=== PATIENT | male | born 1945 | race Caucasian/White ===

== ENCOUNTER 2016-11-17 09:04 | Outpatient (CLI) | payer MEDICARE, OTHER ==
[2016-11-17 09:40] LABS: Bilirubin Negative (Negative); Blood, Urine Negative (Negative); Clarity Clear (Clear); Glucose, Urine (Dipstick) Negative (Negative); Leukocyte Negative (Negative); Nitrite Negative (Negative); Protein, Urine (Dipstick) Negative (Neg-Trace); Urobilinogen 0.2 mg/dL (0.2-1.0)
[2016-11-17 09:48] LABS: #Basophils 0.1 thou/uL (0.0-0.2); #Eosinphils 0.2 thou/uL (0.0-0.7); #Lymphocytes 2.2 thou/uL (1.20-3.40); #Monocytes 0.5 thou/uL (0.11-0.59); #Neutrophils 3.3 thou/uL (1.40-6.50); %Basophils 0.8 % (0.0-1.0); %Eosinophils 3.5 % (0.0-10.0); %Lymphocytes 34.6 % (21.0-51.0); %Monocytes 8.2 % (0.0-10.0); %Neutrophils 52.9 % (42.0-75.0); Hemoglobin 16.6 g/dL (14.0-18.0); Mean Corpuscular HGB CONC 33.7 g/dL (32.0-36.0); Mean Corpuscular Hemoglobin 31.3 pg (27.0-31.0); Mean Corpuscular Volume 92.7 fl (80.0-94.0); Mean Platelet Volume 9.6 fL (7.4-10.4); Platelet Count 191 thou/uL (130-400); RBC Distribution Width 11.6 % (11.5-14.5); White Blood Cell (WBC) Count 6.2 thou/uL (4.8-10.8)
[2016-11-17 10:12] LABS: ALT (SGPT) 19 U/L (0-55); AST (SGOT) 21 U/L (5-34); Albumin 3.9 g/dL (3.4-4.8); Alkaline Phosphatase 53 U/L (40-150); Anion Gap 10 mmol/L (10-20); BUN (Urea Nitrogen) 21 mg/dL (8.4-25.7); Bilirubin, Total 1.1 mg/dL (0.2-1.2); Calc. Creatinine Clearance 0 mL/min (70-130); Calcium 9.3 mg/dL (7.8-10.44); Carbon Dioxide 28 mmol/L (23-31); Cardiac Risk 4.5 (Less than 4.5); Chloride 107 mmol/L (98-107); Cholesterol 211 mg/dL (< 200 Desired); Estimated GFR-MDRD 76; Globulin 2.6 g/dL (2.4-3.5); Glucose 110 mg/dL (83-110); HDL Cholesterol 47 mg/dL (>60 Neg Risk); LDL Cholesterol, Calculated 138 mg/dL; Potassium 5.1 mmol/L (3.5-5.1); Protein, Total 6.5 g/dL (5.8-8.1); Sodium 140 mmol/L (136-145); Triglycerides 128 mg/dL (Less than 150)
== END 2016-11-17 09:05 ==
LOC: MADLABBHPM 09:04
PROVIDERS: ATTEND Family Medicine
DX: E78.5 Hyperlipidemia, unspecified (principal)
CPT/HCPCS: 36415; 80053; 80061; 81001; 84443; 85025

== ENCOUNTER 2017-01-30 10:59 | Outpatient (CLI) | payer MEDICARE, OTHER | END 2017-01-30 11:00 | disposition home or self-care (01) | LOC: MADLABBHPM 10:59 | PROVIDERS: ATTEND Family Medicine | DX: N52.9 Male erectile dysfunction, unspecified (principal) | CPT/HCPCS: 36415; 84153; 84154 ==

== ENCOUNTER 2018-04-10 09:14 | Outpatient (CLI) | payer OTHER | END 2018-04-10 09:15 | disposition home or self-care (01) | LOC: MADLAB 09:14 | DX: Z00.00 Encounter for general adult medical examination without abnormal findings (principal) | CPT/HCPCS: G0103 ==

== ENCOUNTER 2018-11-08 14:08 | Outpatient (CLI) | payer MEDICARE ==
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
== END 2018-11-08 14:09 | disposition home or self-care (01) ==
LOC: MADRAD 14:08
PROVIDERS: ATTEND Family Medicine
DX: M54.5 Low back pain (principal); V89.2XXA Person injured in unspecified motor-vehicle accident, traffic, initial encounter
CPT/HCPCS: 72100

== ENCOUNTER 2022-02-15 17:05 | Emergency (ER) | payer MEDICARE ==
[~2022-02-15 17:05] MED LIST: Sodium Chloride 0.9% 100 ML BAG ONE
[2022-02-15 17:21] LABS: #Basophils 0.1 thou/uL (0.0-0.2); #Eosinphils 0.2 thou/uL (0.0-0.7); #Lymphocytes 2.5 thou/uL (1.20-3.40); #Monocytes 0.6 thou/uL (0.11-0.59); #Neutrophils 4.8 thou/uL (1.40-6.50); %Basophils 0.7 % (0.0-1.0); %Eosinophils 2.6 % (0.0-10.0); %Lymphocytes 30.7 % (21.0-51.0); %Monocytes 6.9 % (0.0-10.0); %Neutrophils 59.1 % (42.0-75.0); Hemoglobin 16.9 g/dL (14.0-18.0); Mean Corpuscular HGB CONC 32.5 g/dL (32.0-36.0); Mean Corpuscular Volume 92.2 fL (78.0-98.0); Mean Platelet Volume 9.7 fL (7.4-10.4); Platelet Count 213 thou/uL (130-400); RBC Distribution Width 12.2 % (11.5-14.5); Red Blood Cell (RBC) Count 5.64 mill/uL (4.70-6.10); White Blood Cell (WBC) Count 8.2 thou/uL (4.8-10.8)
[2022-02-15 17:27] LABS: INR-International Normal Ratio 0.9
[2022-02-15 17:28] LABS: PTT 35.9 sec (22.9-36.1)
[2022-02-15 17:36] LABS: ALT (SGPT) 18 U/L (8-55); AST (SGOT) 25 U/L (5-34); Albumin 4.1 g/dL (3.4-4.8); Alkaline Phosphatase 62 U/L (40-110); Anion Gap 16 mmol/L (10-20); BUN (Urea Nitrogen) 16 mg/dL (8.4-25.7); Bilirubin, Total 0.9 mg/dL (0.2-1.2); Calc. Creatinine Clearance 0 mL/min (70-130); Calcium 9.6 mg/dL (7.8-10.44); Carbon Dioxide 24 mmol/L (23-31); Chloride 108 mmol/L (98-107); Globulin 3.1 g/dL (2.4-3.5); Glucose 98 mg/dL (83-110); Potassium 4.9 mmol/L (3.5-5.1); Protein, Total 7.2 g/dL (5.8-8.1); Sodium 143 mmol/L (136-145)
[2022-02-15] MEDS ORDERED: Aspirin Chewable 81 MG TAB ONE (17:51)
== END 2022-02-15 18:47 | disposition short-term general hospital (02) ==
LOC: MADERS 17:05
DX: I63.9 Cerebral infarction, unspecified (principal)
CPT/HCPCS: 36416; 70450; 70496; 71045; 80053; 84443; 84484; 85025; 85610; 85730; 93005; 94760

== ENCOUNTER 2022-03-29 11:38 | Emergency (ER) | payer MEDICARE ==
[2022-03-29 11:57] LABS: #Eosinphils 0.1 thou/uL (0.0-0.7); #Monocytes 0.5 thou/uL (0.11-0.59); #Neutrophils 7.2 thou/uL (1.40-6.50); %Basophils 0.4 % (0.0-1.0); %Lymphocytes 20.3 % (21.0-51.0); %Monocytes 5.1 % (0.0-10.0); %Neutrophils 73.2 % (42.0-75.0); Hemoglobin 16.9 g/dL (14.0-18.0); Mean Corpuscular HGB CONC 32.8 g/dL (32.0-36.0); Mean Corpuscular Hemoglobin 29.5 pg (27.0-31.0); Mean Platelet Volume 9.7 fL (7.4-10.4); Platelet Count 215 thou/uL (130-400); RBC Distribution Width 11.5 % (11.5-14.5); Red Blood Cell (RBC) Count 5.72 mill/uL (4.70-6.10); White Blood Cell (WBC) Count 9.8 thou/uL (4.8-10.8)
[2022-03-29 12:09] LABS: Prothrombin Time 12.8 sec (12.0-14.7)
[2022-03-29 12:10] LABS: PTT 33.5 sec (22.9-36.1)
[2022-03-29 12:17] LABS: ALT (SGPT) 48 U/L (8-55); AST (SGOT) 32 U/L (5-34); Albumin 4.1 g/dL (3.4-4.8); Alkaline Phosphatase 72 U/L (40-110); Anion Gap 15 mmol/L (10-20); BUN (Urea Nitrogen) 13 mg/dL (8.4-25.7); Bilirubin, Total 1.2 mg/dL (0.2-1.2); Calc. Creatinine Clearance 0 mL/min (70-130); Calcium 9.8 mg/dL (7.8-10.44); Carbon Dioxide 25 mmol/L (23-31); Chloride 108 mmol/L (98-107); Estimated GFR 78; Glucose 133 mg/dL (83-110); Potassium 4.6 mmol/L (3.5-5.1); Protein, Total 7.1 g/dL (5.8-8.1); Sodium 143 mmol/L (136-145)
[2022-03-29] MEDS ORDERED: Clopidogrel Bisulfate 75 MG TAB ONE (12:19)
[2022-03-29] MEDS ORDERED: Aspirin Chewable 81 MG TAB ONE (12:19)
== END 2022-03-29 17:10 | disposition short-term general hospital (02) ==
LOC: MADERS 11:38
DX: I63.9 Cerebral infarction, unspecified (principal); R29.701 NIHSS score 1; R29.702 NIHSS score 2; R00.1 Bradycardia, unspecified
CPT/HCPCS: 70450; 80053; 84484; 85025; 85610; 85730; 93005; 94760

== ENCOUNTER 2022-05-19 10:48 | Outpatient (CLI) | payer MEDICARE ==
[2022-05-19 11:28] LABS: ALT (SGPT) 38 U/L (8-55); AST (SGOT) 24 U/L (5-34); Albumin 3.7 g/dL (3.4-4.8); Alkaline Phosphatase 71 U/L (40-110); Anion Gap 12 mmol/L (10-20); BUN (Urea Nitrogen) 13 mg/dL (8.4-25.7); Calc. Creatinine Clearance 0 mL/min (70-130); Calcium 9.5 mg/dL (7.8-10.44); Carbon Dioxide 25 mmol/L (23-31); Cardiac Risk 3.6 (Less than 4.5); Chloride 109 mmol/L (98-107); Cholesterol 131 mg/dl (< 200 Desired); Estimated GFR 84; Globulin 2.5 g/dL (2.4-3.5); Glucose 110 mg/dL (83-110); HDL Cholesterol 36 mg/dL (>60 Neg Risk); LDL Cholesterol, Calculated 77 mg/dL; Potassium 4.8 mmol/L (3.5-5.1); Protein, Total 6.2 g/dL (5.8-8.1); Sodium 141 mmol/L (136-145); Triglycerides 88 mg/dL (Less than 150)
== END 2022-05-19 10:49 | disposition home or self-care (01) ==
LOC: MADLABBHPM 10:48 → MADLAB 10:49
PROVIDERS: ATTEND Family Medicine
DX: R97.20 Elevated prostate specific antigen [PSA] (principal); E78.5 Hyperlipidemia, unspecified
CPT/HCPCS: 80053; 80061; G0103

== ENCOUNTER 2023-09-06 10:16 | Emergency (ER) | payer MEDICARE | END 2023-09-06 11:20 | disposition home or self-care (01) | LOC: MADERS 10:16 | DX: J11.1 Influenza due to unidentified influenza virus with other respiratory manifestations (principal); Z79.82 Long term (current) use of aspirin | CPT/HCPCS: 71045; 87804; 87807 ==

== ENCOUNTER 2024-02-20 10:12 | Emergency (ER) | payer MEDICARE, OTHER ==
[2024-02-20] MEDS ORDERED: Lactated Ringer's 1,000 ML ONE (10:52)
[2024-02-20 11:27] LABS: Band 11 % (5-11); Eosinophils 1 % (0-10); Hematocrit 44.4 % (42.0-52.0); Hemoglobin 14.7 g/dL (14.0-18.0); Lymphocytes 1 % (21-51); MDiff Complete? YES; Mean Corpuscular HGB CONC 33.1 g/dL (32.0-36.0); Mean Corpuscular Hemoglobin 30.7 pg (27.0-31.0); Mean Platelet Volume 7.7 fL (7.4-10.4); Monocytes 4 % (0-10); Neutrophil 82 % (42-75); Platelet Count 179 10x3/uL (130-400); RBC Distribution Width 12.4 % (11.5-14.5); Red Blood Cell (RBC) Count 4.77 mill/uL (4.70-6.10); Toxic Granulation SLIGHT; White Blood Cell (WBC) Count 21.5 10x3/uL (4.8-10.8)
[2024-02-20 11:28] LABS: Manual Diff?? YES; Platelet Adequacy Comment Appears Adequate; Reactive Lymphocytes 1 % (0-10)
[2024-02-20 11:30] LABS: Troponin I 0.013 ng/mL (< 0.028)
[2024-02-20 11:45] LABS: Influenza A by NAA Not Detected (NotDetected); Influenza B by NAA Not Detected (NotDetected); SARS-CoV-2 NAA Rapid Test Not Detected (NotDetected)
[2024-02-20] MEDS ORDERED: Sodium Chloride 0.9% 100 ML ONE (12:12)
[2024-02-20] MEDS ORDERED: cefTRIAXone (ROCEPHIN) 1 GM VIAL ONE (12:12)
[2024-02-20 12:21] LABS: Bilirubin Small (Negative); Blood, Urine Negative (Negative); Glucose, Urine (Dipstick) Negative (Negative); Ketone, Urine Trace mg/dL (Negative); Leukocyte Negative (Negative); Nitrite Negative (Negative); Protein, Urine (Dipstick) 30 mg/dL (Neg-Trace); Specific Gravity, Urine 1.025 (1.005-1.030); pH, Urine 5.5 (5.0-9.0)
[2024-02-20 12:28] LABS: Clarity Clear (Clear)
[2024-02-20 12:31] LABS: Bacteria/HPF Rare-Few HPF (None Seen); CAUTI Indications for Culture Dysuria,urgency,freq; Mucous/LPF 2+ LPF (<2+); RBC/HPF None Seen HPF (0-3); Squamous Epithelial 0-3 HPF (0-3); Urine Culture Reflex No No; WBC/HPF 0-3 HPF (0-3)
[2024-02-20] MEDS ORDERED: Sodium Chloride 0.9% 1,000 ML ONE (12:37)
[2024-02-20] MEDS ORDERED: Sodium Chloride 0.9% 500 ML ONE (12:37)
[2024-02-20] MEDS ORDERED: Sodium Chloride 0.9% 50 ML ONE (12:51)
== END 2024-02-20 14:03 | disposition short-term general hospital (02) ==
LOC: MADERS 10:12
DX: A41.9 Sepsis, unspecified organism (principal); E78.00 Pure hypercholesterolemia, unspecified; Z79.899 Other long term (current) drug therapy; Z86.73 Personal history of transient ischemic attack (TIA), and cerebral infarction without residual deficits; Z79.82 Long term (current) use of aspirin
CPT/HCPCS: 71046; 81001; 83605; 84484; 85025; 87040; 87081; 87430; 93005; 96374; J0696; J3490; J7030; J7050; J7120